=== PATIENT | female | born 1940 | race Hispanic/Latino ===

== ENCOUNTER 2022-08-05 00:56 | Emergency (ER) | payer MEDICARE ==
[~2022-08-05] VITALS: Ht 152.4 cm; Wt 43.5 kg
[2022-08-05 01:26] LABS: BASOPHILS % (AUTO) 0.3 % (0.0-5.0); EOSINOPHILS % (AUTO) 0.8 % (0.0-8.0); HEMATOCRIT 26.5 % (36-48); LYMPHOCYTES % (AUTO) 19.5 % (21.0-51.0); MEAN CORPUSCULAR HEMOGLOBIN 32.2 pg (27.0-33.0); MEAN CORPUSCULAR HGB CONC 32.5 g/dL (32.0-36.0); MEAN CORPUSCULAR VOLUME 99.3 fL (79-99); MONOCYTES % (AUTO) 5.3 % (3.0-13.0); NEUTROPHILS % (AUTO) 73.4 % (40.0-77.0); PLATELET COUNT (AUTO) 135 K/uL (130-400); RED BLOOD CELL COUNT(AUTO) 2.67 MIL/uL (4.00-5.50); RED CELL DISTRIBUTION WIDTH 14.3 % (11.0-15.5); WHITE BLOOD COUNT (AUTO) 8.8 K/uL (4.8-10.8)
[2022-08-05 01:34] LABS: INR 1.08 (0.85-1.15); PROTHROMBIN TIME 11.7 SEC (9.6-11.6)
[2022-08-05 01:36] LABS: PARTIAL THROMBOPLASTIN TIME 24.5 SEC (26.3-35.5)
[2022-08-05 01:37] LABS: ALBUMIN 3.2 g/dL (3.5-5.0); CREATININE 6.5 mg/dL (0.5-1.5); TOTAL PROTEIN, SERUM 7.1 g/dL (6.0-8.3)
[2022-08-05] MEDS ORDERED: FOLI1TAB85 PO (02:29)
[2022-08-05] MEDS ORDERED: CHOL-34 PO (02:29)
[2022-08-05] MEDS ORDERED: SODI650T PO (02:29)
[2022-08-05] MEDS ORDERED: TORS100T16 PO (02:29)
[2022-08-05] MEDS ORDERED: CALC667C10 PO (02:29)
[2022-08-05] MEDS ORDERED: ACET-2247 PO (02:29)
[2022-08-05] MEDS ORDERED: CLONIDINE HCL 0.1 MG TABLET PO PRN (02:30)
[2022-08-05] MEDS ORDERED: HYDRALAZINE 20MG/ML VIAL IV ONE (02:30)
[2022-08-05] MEDS ORDERED: MORPHINE 2 MG SYG IVP ONE (02:30)
[2022-08-05] MEDS ORDERED: FUROSEMIDE 40MG VIAL IV ONE (02:30)
[2022-08-05 02:39] LABS: ABG BASE EXCESS -15.8 mmol/L (-2.0-3.0); ABG HCO3 12.1 mmol/L (21.0-28.0); ABG OXYGEN SATURATION 37.9 % (95.0-99.0); ABG PCO2 36 mmHg (32-45)
[2022-08-05 03:00] LABS: MAGNESIUM 1.9 mg/dL (1.80-2.40); PHOSPHORUS 6.1 mg/dL (2.5-4.9)
[2022-08-05 03:06] VITALS: BP 137/66
== END 2022-08-05 03:19 | disposition home or self-care (01) ==
LOC: EDH 00:56
DX: E11.22 Type 2 diabetes mellitus with diabetic chronic kidney disease (principal); I12.9 Hypertensive chronic kidney disease with stage 1 through stage 4 chronic kidney disease, or unspecified chronic kidney disease; N18.4 Chronic kidney disease, stage 4 (severe); E87.70 Fluid overload, unspecified; I10 Essential (primary) hypertension; Z90.49 Acquired absence of other specified parts of digestive tract; Z90.710 Acquired absence of both cervix and uterus; Z20.822 Contact with and (suspected) exposure to COVID-19
CPT/HCPCS: 99285; 83735; 84100; 84484; 80053; 82803; 83880; 85025; 85610; 85730; 87804 ×2; 36415; 87635; 71045; 96374; 96375; 93005; 36600; C9803; J0360; J1940